=== PATIENT | male | born 1960 | race Caucasian/White ===

== ENCOUNTER 2016-11-17 12:44 | Emergency (ER) | payer OTHER ==
[~2016-11-17 12:44] MED LIST: Iopamidol 370 76% 100 ML VIAL ONE
[2016-11-17] MEDS ORDERED: Metoprolol Tartrate 5 MG/5 ML VIAL ONE (13:00)
[2016-11-17] MEDS ORDERED: Nitroglycerin 2% Ointment 1 INCH/1 GM Packet ONE (13:01)
[2016-11-17 13:10] LABS: #Basophils 0.1 thou/uL (0.0-0.2); #Lymphocytes 1.3 thou/uL (1.20-3.40); #Monocytes 0.6 thou/uL (0.11-0.59); #Neutrophils 1.9 thou/uL (1.40-6.50); %Eosinophils 1.1 % (0.0-10.0); %Lymphocytes 34.2 % (21.0-51.0); %Neutrophils 48.7 % (42.0-75.0); Hemoglobin 16.4 g/dL (14.0-18.0); Mean Corpuscular HGB CONC 33.8 g/dL (32.0-36.0); Mean Corpuscular Hemoglobin 33.3 pg (27.0-31.0); Mean Corpuscular Volume 98.7 fl (80.0-94.0); Platelet Count 137 thou/uL (130-400); Red Blood Cell (RBC) Count 4.93 mill/uL (4.70-6.10); White Blood Cell (WBC) Count 3.9 thou/uL (4.8-10.8)
[2016-11-17 13:25] LABS: ALT (SGPT) 187 U/L (8-55); AST (SGOT) 200 U/L (5-34); Albumin 4.8 g/dL (3.5-5.0); Alkaline Phosphatase 66 U/L (40-150); Anion Gap 19 mmol/L (10-20); BUN (Urea Nitrogen) 12 mg/dL (8.4-25.7); Bilirubin, Total 0.9 mg/dL (0.2-1.2); CKMB 1.4 ng/mL (0-6.6); Calc. Creatinine Clearance 0 mL/min (70-130); Carbon Dioxide 27 mmol/L (22-29); Chloride 98 mmol/L (98-107); Estimated GFR-MDRD 76; Globulin 3.8 g/dL (2.4-3.5); Glucose 106 mg/dL (70-105); Potassium 3.8 mmol/L (3.5-5.1); Protein, Total 8.6 g/dL (6.0-8.3); Sodium 140 mmol/L (136-145); Troponin I Less than 0.010 ng/mL (< 0.028)
--- NOTE | 2016-11-17 14:19 | CT ---
NONCONTRAST HEAD CT: History: Patient brought over by his PCP for tachycardia, hypertension, and bilateral hand paresthes ia. Comparison: None. Technique: Noncontrast head CT is performed from skull base to skull vertex. FINDINGS: No parenchymal hemorrhage. No extraaxial hematoma. No midline shift. Basilar cisterns are patent. Br ain volume, age appropriate. Cortical mayorga white matter differentiation is preserved. Ventricles and sulci are patent and symmetric. Calvarium is intact. Adequate aeration of the sinuses and mastoid air cells. IMPRESSION: No acute intracranial process. POS: [facility]
[2016-11-17 14:24] LABS: Blood, Urine Negative (Negative); Clarity Cloudy (Clear); Glucose, Urine (Dipstick) Negative (Negative); Leukocyte Negative (Negative); Nitrite Negative (Negative); Protein, Urine (Dipstick) 100 mg/dL (Neg-Trace); Specific Gravity, Urine 1.025 (1.005-1.030)
[2016-11-17 14:26] LABS: Bilirubin Negative (Negative)
[2016-11-17 14:33] LABS: Bacteria/HPF Rare-Few HPF (None Seen); Crystals/HPF None Seen HPF (Negative); Hyaline Casts/LPF NONE SEEN LPF (0-3 Hyaline); Other Casts/LPF 0-3 COARSE GRAN LPF (0-3 Hyaline); Oval Fat Bodies/HPF None Seen HPF (None Seen); RBC/HPF 0-3 HPF (0-3); Renal Epithelial None Seen HPF (0-3); Sperm/HPF None Seen HPF (None Seen); Squamous Epithelial None Seen HPF (0-3); Transitional Epithelial NONE SEEN HPF (0-3); Trichomonas/HPF None Seen HPF (None Seen); WBC/HPF 0-3 HPF (0-3); Yeast-All Forms None Seen HPF (None Seen)
[2016-11-17 14:34] LABS: Amphetamine Not Detected (NotDetected); Barbiturates Screen Not Detected (NotDetected); Benzodiazepine Screen Not Detected (NotDetected); Cocaine Metabolite Screen Not Detected (NotDetected); Medtox Control Line Valid? VALID (VALID); Methadone Not Detected (NotDetected); Methamphetamine Not Detected (NotDetected); Opiate Screen Not Detected (NotDetected); Oxycodone Screen Not Detected (NotDetected); Phencyclidine (PCP) Not Detected (NotDetected); THC/Cannabinoid Screen Not Detected (NotDetected); Tricyclic Screen Not Detected (NotDetected)
[2016-11-17] MEDS ORDERED: Ketorolac Tromethamine 30 MG/ML VIAL ONE (14:54)
--- NOTE | 2016-11-17 19:33 | RAD ---
CHEST TWO VIEWS 11/17/16 Comparison is made with the 04/09/13 study. The heart is normal in size and the lungs are clear. No infiltrate or effusion was seen. The trachea is midline. The bony structures showed no acute change. The vessels appear normal. IMPRESSION: Stable exam showing no acute findings. POS: [facility]
--- NOTE | 2016-11-17 20:18 | CT ---
CT ABDOMEN AND PELVIS WITH CONTRAST 11/17/[address] of the abdomen and pelvis was performed for evaluation of abnormal liver function test and mid epigastric pain. Axial slices were acquired, then coronal reconstructions were done. There are no prior scans available for comparison. There was however, a March 2012 ultrasound also done for increased liver function tests that showed fatty infiltration of the liver. The lung bases are clear. The hepatic size is upper normal and there is diffuse low density of the l iver consistent with fatty infiltration. No focal hepatic lesions are seen. The gallbladder seems a bit opaque, so I would not be surprised if there was some sludge, but ultrasound would be better at showing this. No calcified stones were appreciated. The pancreas, adrenal glands, and kidneys showed no acute findings. The abdominal aorta is normal in size. The spleen is normal in size. The bowel shows no dilation, wall thickening, or inflammatory change around it. The appendix appears normal. No free air or free fluid was seen. CT of the pelvis shows no pelvic masses, inflammatory changes or free fluid. Some degenerative hightower es are present in the lower lumbar spine. IMPRESSION: Borderline hepatic size with diffuse fatty infiltration of the liver. No other focal findings of con cern. POS: [facility]
== END 2016-11-17 15:42 | disposition home or self-care (01) ==
LOC: BURERS 12:44
DX: I10 Essential (primary) hypertension (principal); K80.50 Calculus of bile duct without cholangitis or cholecystitis without obstruction; K76.0 Fatty (change of) liver, not elsewhere classified; K21.9 Gastro-esophageal reflux disease without esophagitis; E78.5 Hyperlipidemia, unspecified; F17.220 Nicotine dependence, chewing tobacco, uncomplicated; Z79.82 Long term (current) use of aspirin
CPT/HCPCS: 70450; 71020; 74177; 80053; 80306; 81003; 81015; 82553; 83690; 83880; 84443; 84484; 85025; 93005; 94760; 96374; 96375; A4216; J1885

== ENCOUNTER 2022-03-08 14:40 | Emergency (ER) | payer SELFPAY ==
[2022-03-08 15:14] LABS: #Basophils 0.1 thou/uL (0.0-0.2); #Eosinphils 0.1 thou/uL (0.0-0.7); #Monocytes 0.5 thou/uL (0.11-0.59); #Neutrophils 4.5 thou/uL (1.40-6.50); %Basophils 1.2 % (0.0-1.0); %Eosinophils 1.2 % (0.0-10.0); %Lymphocytes 28.1 % (21.0-51.0); %Monocytes 7.3 % (0.0-10.0); %Neutrophils 62.4 % (42.0-75.0); Hemoglobin 14.9 g/dL (14.0-18.0); Mean Corpuscular HGB CONC 32.9 g/dL (32.0-36.0); Mean Corpuscular Hemoglobin 34.5 pg (27.0-31.0); Mean Platelet Volume 8.9 fL (7.4-10.4); Platelet Count 148 10x3/uL (130-400); RBC Distribution Width 13.2 % (11.5-14.5); Red Blood Cell (RBC) Count 4.32 mill/uL (4.70-6.10); White Blood Cell (WBC) Count 7.2 10x3/uL (4.8-10.8)
[2022-03-08 15:16] LABS: MDiff Complete? YES
[2022-03-08 15:29] LABS: Macrocytosis SLIGHT = 6-15 cells (100X) (0-5/hpf)
[2022-03-08 15:31] LABS: ALT (SGPT) 76 U/L (8-55); AST (SGOT) 237 U/L (5-34); Albumin 4.2 g/dL (3.4-4.8); Alcohol 211 mg/dL (Less than 10); Alkaline Phosphatase 93 U/L (40-110); Anion Gap 24 mmol/L (10-20); BUN (Urea Nitrogen) Less than 4 mg/dL (8.4-25.7); Bilirubin, Total 1.2 mg/dL (0.2-1.2); Calc. Creatinine Clearance 0 mL/min (70-130); Calcium 9.3 mg/dL (7.8-10.44); Carbon Dioxide 23 mmol/L (23-31); Chloride 95 mmol/L (98-107); Estimated GFR 106; Globulin 3.6 g/dL (2.4-3.5); Glucose 97 mg/dL (80-115); Magnesium 1.7 mg/dL (1.6-2.6); Protein, Total 7.8 g/dL (5.8-8.1); Sodium 138 mmol/L (136-145)
== END 2022-03-08 16:50 | disposition home or self-care (01) ==
LOC: BURERS 14:40
DX: F10.129 Alcohol abuse with intoxication, unspecified (principal); E86.0 Dehydration; R07.89 Other chest pain; K21.9 Gastro-esophageal reflux disease without esophagitis; I10 Essential (primary) hypertension; F17.220 Nicotine dependence, chewing tobacco, uncomplicated; Y90.7 Blood alcohol level of 200-239 mg/100 ml; Z79.82 Long term (current) use of aspirin; Z79.899 Other long term (current) drug therapy
CPT/HCPCS: 71045; 80053; 80307; 83735; 83880; 84484; 85025; 93005; 96360

== ENCOUNTER 2022-08-11 14:43 | Emergency (ER) | payer SELFPAY ==
[2022-08-11 15:10] LABS: #Basophils 0.1 thou/uL (0.0-0.2); #Eosinphils 0.1 thou/uL (0.0-0.7); #Monocytes 0.4 thou/uL (0.11-0.59); #Neutrophils 3.2 thou/uL (1.40-6.50); %Basophils 1.9 % (0.0-1.0); %Eosinophils 1.7 % (0.0-10.0); %Monocytes 5.9 % (0.0-10.0); %Neutrophils 46.4 % (42.0-75.0); Hemoglobin 14.7 g/dL (14.0-18.0); Mean Corpuscular HGB CONC 33.1 g/dL (32.0-36.0); Mean Corpuscular Hemoglobin 32.5 pg (27.0-31.0); Mean Corpuscular Volume 98.1 fl (78.0-98.0); Mean Platelet Volume 6.7 fL (7.4-10.4); Platelet Count 175 10x3/uL (130-400); RBC Distribution Width 12.7 % (11.5-14.5); Red Blood Cell (RBC) Count 4.53 mill/uL (4.70-6.10); White Blood Cell (WBC) Count 6.9 10x3/uL (4.8-10.8)
[2022-08-11 15:30] LABS: ALT (SGPT) 32 U/L (8-55); AST (SGOT) 49 U/L (5-34); Albumin 4.4 g/dL (3.4-4.8); Alcohol 294 mg/dL (Less than 10); Alkaline Phosphatase 69 U/L (40-110); Anion Gap 20 mmol/L (10-20); BUN (Urea Nitrogen) 6 mg/dL (8.4-25.7); Bilirubin, Total 0.7 mg/dL (0.2-1.2); Calc. Creatinine Clearance 0 mL/min (70-130); Calcium 9.4 mg/dL (7.8-10.44); Carbon Dioxide 26 mmol/L (23-31); Chloride 99 mmol/L (98-107); Estimated GFR 100; Globulin 3.8 g/dL (2.4-3.5); Glucose 98 mg/dL (80-115); Protein, Total 8.2 g/dL (5.8-8.1); Sodium 142 mmol/L (136-145)
[2022-08-11] MEDS ORDERED: Potassium Chloride 20 MEQ TAB ONE (15:49)
== END 2022-08-11 16:14 | disposition home or self-care (01) ==
LOC: BURERS 14:43
DX: R07.89 Other chest pain (principal); F10.129 Alcohol abuse with intoxication, unspecified; Y90.8 Blood alcohol level of 240 mg/100 ml or more
CPT/HCPCS: 71045; 80053; 80307; 83880; 84484; 85025; 93005; 94760; 96360

== ENCOUNTER 2022-10-19 11:25 | Emergency (ER) | payer SELFPAY ==
[2022-10-19 11:59] LABS: #Basophils 0.1 thou/uL (0.0-0.2); #Eosinphils 0.1 thou/uL (0.0-0.7); #Lymphocytes 1.9 thou/uL (1.20-3.40); #Monocytes 0.4 thou/uL (0.11-0.59); #Neutrophils 2.4 thou/uL (1.40-6.50); %Eosinophils 2.6 % (0.0-10.0); %Lymphocytes 38.6 % (21.0-51.0); %Monocytes 8.2 % (0.0-10.0); %Neutrophils 48.7 % (42.0-75.0); Hemoglobin 14.7 g/dL (14.0-18.0); Mean Corpuscular HGB CONC 32.9 g/dL (32.0-36.0); Mean Corpuscular Hemoglobin 31.4 pg (27.0-31.0); Mean Corpuscular Volume 95.6 fl (78.0-98.0); Mean Platelet Volume 6.8 fL (7.4-10.4); Platelet Count 148 10x3/uL (130-400); Red Blood Cell (RBC) Count 4.68 mill/uL (4.70-6.10)
[2022-10-19 12:00] LABS: MDiff Complete? YES; Manual Diff?? NO
[2022-10-19 12:10] LABS: Acetaminophen Less than 10 mcg/mL (10.0-30.0); Alcohol 299.9 mg/dL (Less than 10); Salicylate Less than 8.0 mg/dL (15.0-30.0)
[2022-10-19 12:13] LABS: ALT (SGPT) 19 U/L (8-55); AST (SGOT) 37 U/L (5-34); Albumin 4.3 g/dL (3.4-4.8); Alkaline Phosphatase 82 U/L (40-110); Anion Gap 22 mmol/L (10-20); BUN (Urea Nitrogen) 6 mg/dL (8.4-25.7); Bilirubin, Total 0.7 mg/dL (0.2-1.2); Calc. Creatinine Clearance 0 mL/min (70-130); Calcium 8.8 mg/dL (7.8-10.44); Carbon Dioxide 24 mmol/L (23-31); Chloride 100 mmol/L (98-107); Estimated GFR 105; Globulin 3.9 g/dL (2.4-3.5); Glucose 107 mg/dL (80-115); Potassium 3.2 mmol/L (3.5-5.1); Protein, Total 8.2 g/dL (5.8-8.1); Sodium 143 mmol/L (136-145)
== END 2022-10-19 15:06 | disposition home or self-care (01) ==
LOC: BURERS 11:25
DX: F10.129 Alcohol abuse with intoxication, unspecified (principal); E78.5 Hyperlipidemia, unspecified; I10 Essential (primary) hypertension; F17.220 Nicotine dependence, chewing tobacco, uncomplicated
CPT/HCPCS: 36415; 70450; 72125; 80053; 80307; 85025

== ENCOUNTER 2024-12-01 22:18 | Emergency (ER) | payer OTHER ==
[2024-12-01 23:27] LABS: #Basophils 0.1 thou/uL (0.0-0.2); #Eosinophils 0.2 thou/uL (0.0-0.7); #Lymphocytes 1.3 thou/uL (1.20-3.40); #Monocytes 0.6 thou/uL (0.11-0.59); #Neutrophils 3.3 thou/uL (1.40-6.50); %Basophils 1.6 % (0.0-1.0); %Eosinophils 3.0 % (0.0-10.0); %Lymphocytes 23.9 % (21.0-51.0); %Monocytes 10.3 % (0.0-10.0); %Neutrophils 61.2 % (42.0-75.0); Hematocrit 36.4 % (42.0-52.0); Hemoglobin 13.1 g/dL (14.0-18.0); Mean Corpuscular Hemoglobin 34.0 pg (27.0-31.0); Mean Corpuscular Volume 94.8 fl (78.0-98.0); Platelet Count 106 10x3/uL (130-400); Red Blood Cell (RBC) Count 3.82 mill/uL (4.70-6.10); White Blood Cell (WBC) Count 5.4 10x3/uL (4.8-10.8)
[2024-12-01 23:32] LABS: ALT (SGPT) 34 U/L (Less than 45); AST (SGOT) 93 U/L (11-34); Albumin 3.7 g/dL (3.1-4.5); Alkaline Phosphatase 97 U/L (40-110); Anion Gap 19 mmol/L (10-20); BUN (Urea Nitrogen) 6 mg/dL (8.4-25.7); Bilirubin, Total 1.1 mg/dL (0.3-1.2); Calc. Creatinine Clearance 0 mL/min (70-130); Calcium 8.8 mg/dL (7.8-10.44); Carbon Dioxide 19 mmol/L (23-31); Chloride 105 mmol/L (98-107); Globulin 3.5 g/dL (2.4-3.5); Glucose 148 mg/dL (80-115); Lipase 44 U/L (8-78); Potassium 3.0 mmol/L (3.5-5.1); Sodium 140 mmol/L (136-145)
[2024-12-02 01:37] LABS: Glucose, Urine (Dipstick) Negative (Negative); Leukocyte Negative (Negative); Protein, Urine (Dipstick) Negative (Neg-Trace); Specific Gravity, Urine 1.015 (1.005-1.030)
[2024-12-02 01:49] LABS: Bacteria/HPF None Seen HPF (None Seen); CAUTI Indications for Culture Pelvic or flank pain; RBC/HPF None Seen HPF (0-3); WBC/HPF None Seen HPF (0-3)
[2024-12-02 01:50] LABS: Urine Culture Reflex No No
[2024-12-02 02:46] LABS: Cocaine Metabolite Screen Negative (Negative); THC/Cannabinoid Screen Negative (Negative); Tricyclic Screen Negative (Negative)
[2024-12-02] MEDS ORDERED: NS 0.9% w/ 20 MEQ KCL 1,000 ML ONE ×2 (04:08→07:09)
[2024-12-02 06:45] LABS: Potassium 3.1 mmol/L (3.5-5.1)
[2024-12-02 08:48] LABS: Potassium 3.5 mmol/L (3.5-5.1)
[2024-12-02 08:58] LABS: Acetaminophen Less than 10 mcg/mL (Less than 10); Salicylate Less than 8.0 mg/dL (Less than 8.0)
== END 2024-12-02 09:17 | disposition home or self-care (01) ==
LOC: BURERS 22:18
DX: E86.0 Dehydration (principal); M54.50 Low back pain, unspecified; E87.6 Hypokalemia; I10 Essential (primary) hypertension; F17.220 Nicotine dependence, chewing tobacco, uncomplicated
CPT/HCPCS: 36415; 74177; 80306; 80307; 81001; 83605; 83690; 84132; 96361; 96374; J2270; J3480; Q9967

== ENCOUNTER 2024-12-12 14:27 | Emergency (ER) | payer OTHER ==
[2024-12-12 15:16] LABS: #Basophils 0.1 thou/uL (0.0-0.2); #Eosinophils 0.1 thou/uL (0.0-0.7); #Lymphocytes 1.5 thou/uL (1.20-3.40); #Monocytes 0.7 thou/uL (0.11-0.59); #Neutrophils 5.6 thou/uL (1.40-6.50); %Basophils 1.3 % (0.0-1.0); %Eosinophils 0.6 % (0.0-10.0); %Lymphocytes 18.8 % (21.0-51.0); %Monocytes 8.9 % (0.0-10.0); %Neutrophils 70.4 % (42.0-75.0); Hematocrit 45.3 % (42.0-52.0); Hemoglobin 16.3 g/dL (14.0-18.0); Mean Corpuscular Hemoglobin 33.7 pg (27.0-31.0); Mean Corpuscular Volume 93.7 fl (78.0-98.0); Platelet Count 145 10x3/uL (130-400); Red Blood Cell (RBC) Count 4.83 mill/uL (4.70-6.10); White Blood Cell (WBC) Count 8.0 10x3/uL (4.8-10.8)
[2024-12-12 15:24] LABS: INR-International Normal Ratio 1.2; PTT 38.7 sec (22.9-36.1); Prothrombin Time 14.9 sec (12.0-14.7)
[2024-12-12] MEDS ORDERED: Folic Acid 5 MG/ML MDV ONE (15:31)
[2024-12-12 15:32] LABS: ALT (SGPT) 62 U/L (Less than 45); AST (SGOT) 248 U/L (11-34); Albumin 4.2 g/dL (3.1-4.5); Alkaline Phosphatase 85 U/L (40-110); Anion Gap 23 mmol/L (10-20); BUN (Urea Nitrogen) 14 mg/dL (8.4-25.7); Bilirubin, Total 3.2 mg/dL (0.3-1.2); Calc. Creatinine Clearance 0 mL/min (70-130); Calcium 9.0 mg/dL (7.8-10.44); Carbon Dioxide 22 mmol/L (23-31); Chloride 95 mmol/L (98-107); Globulin 4.4 g/dL (2.4-3.5); Glucose 137 mg/dL (80-115); Potassium 2.7 mmol/L (3.5-5.1); Sodium 137 mmol/L (136-145)
[2024-12-12] MEDS ORDERED: Multivit, Adult Inj 10 ML VIAL ONE (15:32)
[2024-12-12 15:33] LABS: Troponin I Less than 0.010 ng/mL (< 0.028)
[2024-12-12 15:34] LABS: Acetaminophen Less than 10 mcg/mL (Less than 10); Lipase 34 U/L (8-78); Magnesium 1.4 mg/dL (1.6-2.6); Salicylate Less than 8.0 mg/dL (Less than 8.0)
[2024-12-12] MEDS ORDERED: Potassium Chloride 20 MEQ (100 mL) BAG ONE (16:52)
[2024-12-12] MEDS ORDERED: Magnesium 2 GM/50 ML BAG (IN WATER) ONE (16:53)
== END 2024-12-12 17:30 | disposition short-term general hospital (02) ==
LOC: BURERS 14:27
DX: F10.129 Alcohol abuse with intoxication, unspecified (principal); E87.6 Hypokalemia; E83.42 Hypomagnesemia; I10 Essential (primary) hypertension; F17.220 Nicotine dependence, chewing tobacco, uncomplicated; Z79.82 Long term (current) use of aspirin
CPT/HCPCS: 36415; 74176; 80053; 80307; 83605; 83690; 83735; 83880; 84484; 85025; 85610; 85730; 93005; 96365; 96368; 96375; J2060; J3411; J3475; J3480

== ENCOUNTER 2025-02-18 13:27 | Emergency (ER) | payer OTHER ==
[2025-02-18 14:49] LABS: Hematocrit 42.4 % (42.0-52.0); Hemoglobin 16.0 g/dL (14.0-18.0); Mean Corpuscular Hemoglobin 31.5 pg (27.0-31.0); Mean Corpuscular Volume 83.6 fl (78.0-98.0); Platelet Count 126 10x3/uL (130-400); Red Blood Cell (RBC) Count 5.07 mill/uL (4.70-6.10); White Blood Cell (WBC) Count 7.2 10x3/uL (4.8-10.8)
[2025-02-18 15:05] LABS: ALT (SGPT) 56 U/L (Less than 45); AST (SGOT) 103 U/L (11-34); Albumin 4.3 g/dL (3.1-4.5); Alkaline Phosphatase 93 U/L (40-110); Anion Gap 31 mmol/L (10-20); BUN (Urea Nitrogen) 15 mg/dL (8.4-25.7); Bilirubin, Total 3.6 mg/dL (0.3-1.2); Calc. Creatinine Clearance 0 mL/min (70-130); Calcium 9.4 mg/dL (7.8-10.44); Carbon Dioxide 25 mmol/L (23-31); Chloride 87 mmol/L (98-107); Globulin 4.7 g/dL (2.4-3.5); Glucose 191 mg/dL (80-115); Lipase 15 U/L (8-78); Potassium 4.0 mmol/L (3.5-5.1); Sodium 139 mmol/L (136-145); Troponin I 0.021 ng/mL (< 0.028)
[2025-02-18 15:25] LABS: MDiff Complete? YES
[2025-02-18 15:38] LABS: Manual Diff?? YES
[2025-02-18] MEDS ORDERED: Mag-Al Plus 1200/1200/120 MG (30 mL) UDCUP ONE (16:42)
[2025-02-18] MEDS ORDERED: Lidocaine Viscous Sol 2% 15 ml UD Cup ONE (16:42)
[2025-02-18] MEDS ORDERED: hydrALAZINE 20 MG/ML VIAL ONE (18:18)
[2025-02-18] MEDS ORDERED: Thiamine 100 MG TAB ONE (19:02)
== END 2025-02-18 19:10 | disposition short-term general hospital (02) ==
LOC: BURERS 13:27
DX: K20.90 Esophagitis, unspecified without bleeding (principal); F10.239 Alcohol dependence with withdrawal, unspecified; I10 Essential (primary) hypertension; F17.220 Nicotine dependence, chewing tobacco, uncomplicated
CPT/HCPCS: 36415; 71045; 80053; 83605; 83690; 84484; 85025; 93005; 96361; 96374; 96375; 96376; J0360; J2060; J3010